=== PATIENT | female | born 1935 | race Caucasian/White ===

== ENCOUNTER → 2018-02-04 | Outpatient (CLI) | payer OTHER | LOC: FIMAGING 14:27 | PROVIDERS: ATTEND Internal Medicine Geriatric Medicine | DX: R22.2 Localized swelling, mass and lump, trunk (principal); H53.031 Strabismic amblyopia, right eye; M19.90 Unspecified osteoarthritis, unspecified site; Q67.8 Other congenital deformities of chest; R41.3 Other amnesia; Z85.3 Personal history of malignant neoplasm of breast ==